=== PATIENT | female | born 1960 | race Caucasian/White ===

== ENCOUNTER → 2017-05-22 | Outpatient (CLI) | payer BC ==
[~2017-05-22] MED LIST: DIOVAN PO; DITROPAN 5MG TAB5 MG PO; HCTZ 25MG TAB25 MG; LORTAB 5/500 501 TAB PO; PRILOTC PO
== END ==
LOC: MC.RAD 09:00
DX: Z12.31 Encounter for screening mammogram for malignant neoplasm of breast (principal)

== ENCOUNTER → 2017-07-18 | Outpatient (CLI) | payer BC | LOC: COL.RAD 09:16 | DX: D47.2 Monoclonal gammopathy (principal); Z96.652 Presence of left artificial knee joint ==

== ENCOUNTER 2019-01-08 10:19 | Emergency (ER) | payer BC ==
[~2019-01-08] VITALS: Ht 160 cm; Wt 95.5 kg
[2019-01-08 10:29] VITALS: BP 135/80; TEMP 98.8
[2019-01-08] MEDS ORDERED: PRILOSEC 20MG20 MG PO (10:37)
[2019-01-08] MEDS ORDERED: DIOVAN HCT 12.51 TA2 PO (10:37)
[2019-01-08] MEDS ORDERED: ZYRTEC 10MG10 MG PO (10:38)
[2019-01-08 13:15] VITALS: PULSE 78
== END 2019-01-08 13:15 | disposition home or self-care (01) ==
LOC: COL.ER 10:19
DX: M25.561 Pain in right knee (principal); K21.9 Gastro-esophageal reflux disease without esophagitis; I10 Essential (primary) hypertension; Z90.710 Acquired absence of both cervix and uterus

== ENCOUNTER → 2019-04-15 | Outpatient (CLI) | payer BC ==
[~2019-04-15] MED LIST changes: +DIOVAN HCT 12.51 TA2 PO; +PRILOSEC 20MG20 MG PO; +ZYRTEC 10MG10 MG PO
== END ==
LOC: COL.RAD 10:57
DX: D47.2 Monoclonal gammopathy (principal)

== ENCOUNTER → 2020-12-16 | Outpatient (CLI) | payer BC | LOC: MC.RAD 11:00 | DX: N60.01 Solitary cyst of right breast (principal) ==

== ENCOUNTER 2021-05-26 11:15 | Outpatient (RCR) | payer BC | END 2021-06-05 | disposition home or self-care (01) | LOC: MKS.ESL.PT | DX: M25.552 Pain in left hip (principal) ==

== ENCOUNTER 2022-02-01 16:00 | Outpatient (RCR) | payer BC | END 2022-02-05 | disposition home or self-care (01) | LOC: MKS.ESL.PT | DX: M79.605 Pain in left leg (principal) ==

== ENCOUNTER 2022-03-28 14:19 | Outpatient (RCR) | payer BC | END 2022-04-07 | disposition home or self-care (01) | LOC: MKS.ESL.PT | DX: S76.312D Strain of muscle, fascia and tendon of the posterior muscle group at thigh level, left thigh, subsequent encounter (principal); X58.XXXD Exposure to other specified factors, subsequent encounter ==

== ENCOUNTER 2022-07-05 16:22 | Outpatient (RCR) | payer BC | END 2022-07-05 16:27 | LOC: MKS.ESL.PT 16:22 | DX: S76.312D Strain of muscle, fascia and tendon of the posterior muscle group at thigh level, left thigh, subsequent encounter (principal); R26.89 Other abnormalities of gait and mobility; X58.XXXD Exposure to other specified factors, subsequent encounter ==

== ENCOUNTER 2023-11-19 15:46 | Emergency (ER) | payer BC ==
[~2023-11-19] VITALS: Ht 160 cm; Wt 79.5 kg
[2023-11-19 15:56] VITALS: TEMP 98
[2023-11-19] MEDS ORDERED: NS 1,000 ML IV ONE (17:15)
[2023-11-19 17:27] LABS: BASO # 0.1 K/mm3 (0.0-0.2); BASO % 0.8 % (0.0-2.0); EOS # 0.2 K/mm3 (0.0-0.7); EOS % 2.5 % (0.0-4.0); GRAN # 4.8 K/mm3 (1.4-6.5); GRAN % 64.4 % (42.2-75.2); HEMATOCRIT 37.5 % (37.0-47.0); HEMOGLOBIN 12.3 g/dl (12.5-16.0); LYMPH # 1.8 K/mm3 (1.2-3.4); LYMPH % 24.6 % (20.0-51.0); MEAN CELL VOLUME 84 fl (80.0-100.0); MEAN CORPUSCULAR HEMOGLOBIN 28 pg (27-31); MEAN CORPUSCULAR HGB CONC 33 g/dl (33.0-37.0); MEAN PLATELET VOLUME 10.8 fl (7.4-10.4); MONO # 0.6 K/mm3 (0.1-0.6); MONO % 7.6 % (1.7-9.3); PLATELET COUNT 260 K/mm3 (130-400); RED BLOOD COUNT 4.48 M/mm3 (4.10-5.30)
[2023-11-19] MEDS ORDERED: Meclizine 25 MG TAB PO ONE (17:45)
[2023-11-19 17:46] LABS: ALANINE AMINOTRANSFERASE 12 U/L (0-55); ALBUMIN 3.6 g/dL (3.4-4.8); ALKALINE PHOSPHATASE 55 U/L (40-150); ANION GAP 11 mmol/L (7-16); AST,SGOT 14 U/L (5-34); BILIRUBIN,TOTAL 0.3 mg/dL (0.2-1.2); BLOOD UREA NITROGEN 12 mg/dL (10-20); CHLORIDE 104 mEq/L (98-107); CREATININE, serum 0.77 mg/dL (0.57-1.11); GLUCOSE 88 mg/dL (70-99); SODIUM 141 mEq/L (136-145); TOTAL PROTEIN 8.1 g/dl (6.2-8.1)
[2023-11-19 17:57] LABS: TROPONIN-I < 0.010 ng/mL (0.00-0.033)
[2023-11-19 19:41] LABS: COLLECTION METHOD CLEAN CATCH
[2023-11-19 19:44] LABS: URINE APPEARANCE CLEAR (CLEAR/HAZY); URINE BLOOD NEGATIVE (NEGATIVE); URINE COLOR YELLOW (YELLOW); URINE GLUCOSE NEGATIVE (NEGATIVE); URINE KETONE NEGATIVE (NEGATIVE); URINE NITRATE NEGATIVE (NEGATIVE); URINE PROTEIN(semi-quant) NEGATIVE (NEGATIVE)
[2023-11-19 19:57] VITALS: BP 126/79; PULSE 62
== END 2023-11-19 19:57 | disposition home or self-care (01) ==
LOC: COL.ER 15:46
PROVIDERS: Nurse Practitioner Primary Care
DX: R42 Dizziness and giddiness (principal); I10 Essential (primary) hypertension; Z79.82 Long term (current) use of aspirin; Z79.899 Other long term (current) drug therapy
CPT/HCPCS: J7030